=== PATIENT | male | born 1960 | race Caucasian/White ===

== ENCOUNTER 2017-05-02 10:49 | Emergency (ER) | payer BC ==
--- OUTSIDE RECORDS SUMMARY | 2017-05-02 11:01 | XMS REPORT ---
:1960 External Reference #:[id number] Author Organization [facility] Address [address] [place] [address] Phone [phone] Care Team Providers Name Role Mayte Luna Primary Care Physician Unavailable Payers Type Date Identification Numbers Payment Provider Subscriber Commercial Effective: Policy Number: Ramone Kemp 2014 [id number] [facility] Name: Ramone [address] [address] PayID: [id number] [address] [id number] Problems Date Description Provider Status Onset: Headache Active Onset: 05/12/2016 Chronic obstructive lung disease Aguila Castro MD Active Note: 03/13/16 inpt with RUL PNA. 04/26/16 CXR NAD. 05/01/16 CT chest: No PE. Scattered mild centrilobular emphysematous changes most pronounced LLL(hx of PNAs in the s). 05/12/[address] Castro. 06/13/16 stress echo normal and CXR NAD. Onset: 05/12/2016 Seasonal allergic rhinitis Aguila Castro MD Active Note: 05/01/16 eos 7%. 07/06/16 RAST +2 Morgan. 07/2016 increased nasal sinus symptoms with discontinuation of Singulair. Onset: Low back pain Active Onset: 05/12/2016 Liver cyst Aguila Castro MD Active Note: 05/01/16 CT chest: Multiple ill-defined hepatic hypodensities, largest right hepatic lobe, 2 cm. 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 Smoking 05/12/2016 Patient is a former smoker Daily Caffeine Consumes on average 3 cups of regular coffee per day Allergies, Adverse Reactions, Alerts Date Description Reaction Status Severity Comments 07/05/2016 NKDA active Medications Medication Date Status Form Strength Qnty SIG Indications Ordering Provider Arnuity 02/06/ Active Aerosol 100mcg/Act 1units 1 J45.40 Alkins, Ellipta 2017 inhalation meghan Sheehan, MD rinse mouth after use Montelukast 05/12/ Active Tablets 10mg 30tabs take one R09.82 Alkins, Sodium 2017 tablet by Aguila mouth in MD the evening Combivent / Active Aerosol 20-100mcg/ 4gm one J45.40 Alkins, Respimat 0000 Act inhalation Aguila, four times MD a day as needed Flonase 05/23/ Hx Suspension 50mcg/Act 9.900m two sprays R09.82 Viet, Allergy 2017 - l each Shikela, Relief 07/05/ nostril [employer] 2016 daily Ventolin HFA / Hx Aerosol 108(90Base inhale 2 Unknown 0000 - ) mcg/Act puff by 07/05/ inhalation 2017 route every 4 - 6 hours as needed Immunizations CPT Code Status Date Vaccine Lot # 15276 Given 02/06/2017 Influenza Vaccine, Quadrivalent, Split Virus, Im [id number] Use (Multi-Dose) 59469 Given 06/19/2016 Pneumococcal (Pneumovax 23) 74802 Given 05/12/2016 Flu Shot [id number] Vital Signs Date Vital Result Comment 04/24/2017 Height 74.2 inches 6'2.20" Weight 200.00 lb BMI (Body Mass Index) 25.5 kg/m2 BP Systolic 109 mmHg BP Diastolic 69 mmHg Heart Rate 60 /min Body Temperature 97.2 F O2 % BldC Oximetry 98 % 02/06/2017 Height 74.2 inches 6'2.20" Weight 205.00 lb BMI (Body Mass Index) 26.2 kg/m2 BP Systolic 118 mmHg BP Diastolic 67 mmHg Heart Rate 62 /min Body Temperature 97.1 F O2 % BldC Oximetry 97 % 08/04/2016 Height 74.2 inches 6'2.20" Weight 202.25 lb BMI (Body Mass Index) 25.8 kg/m2 BP Systolic 130 mmHg BP Diastolic 84 mmHg Heart Rate 57 /min Body Temperature 97.9 F O2 % BldC Oximetry 98 % 07/05/2016 Height 74.2 inches 6'2.20" Weight 200.00 lb BMI (Body Mass Index) 25.5 kg/m2 BP Systolic 109 mmHg BP Diastolic 71 mmHg Heart Rate 60 /min Body Temperature 97.2 F O2 % BldC Oximetry 98 % 05/23/2016 Height 74.2 inches 6'2.20" Weight 201.00 lb BMI (Body Mass Index) 25.7 kg/m2 BP Systolic 100 mmHg BP Diastolic 70 mmHg Heart Rate 55 /min Body Temperature 97.1 F tympanic O2 % BldC Oximetry 99 % 05/12/2016 Height 74.2 inches 6'2.20" Weight 192.50 lb BMI (Body Mass Index) 24.6 kg/m2 BP Systolic 137 mmHg left arm adult cuff BP Diastolic 84 mmHg left arm adult cuff Heart Rate 51 /min Body Temperature 97.7 F O2 % BldC Oximetry 98 % Results Test Date Test Result H/L Range Note Rast Ige 07/05/2016 Rast DONE - 1 Ige DONE kU/L - 2 Laboratory test finding 07/05/2016 Venipuncture DONE - 1 See Separate Laboratory Report 2 See Separate Laboratory Report Procedures Date CPT Code Description Status 04/24/2017 50362 Bronchodilation Responsiveness Spirometry Pre/Post Completed Bronchodil Adm 02/06/2017 53564 Bronchodilation Responsiveness Spirometry Pre/Post Completed Bronchodil Adm 07/05/2016 32323 Bronchodilation Responsiveness Spirometry Pre/Post Completed Bronchodil Adm 06/13/2016 05612 ECHO Transthor[employer] Performance Continuous Completed Electrocardio 06/13/2016 77834 Doppler Echocardiography Color Flow Velocity Mapping Completed 06/13/2016 75442 Doppler Echocardiography Complete Completed 06/13/2016 88402 Electrocardiogram Interpretation & Report Only Completed 06/13/2016 58148 Electrocardiogram Interpretation & Report Only Completed 06/13/2016 75187 Electrocardiogram Interpretation & Report Only Completed 05/12/2016 77402 Bronchodilation Responsiveness Spirometry Pre/Post Completed Bronchodil Adm 05/01/2016 53856 Electrocardiogram Interpretation & Report Only Completed 03/13/2016 83119 Electrocardiogram Interpretation & Report Only Completed Encounters Type Date Location Provider CPT E/M Dx Office Visit 04/24/2017 10:00a [facility] [address] R06.00 [place] J45.40 K76.89 Office Visit 02/06/2017 2:20p [place] [address] R06.00 [place] J44.9 J45.40 J30.2 Z28.3 Z23 Office Visit 08/04/2016 1:20p [place] [address] J44.9 [place] R09.82 Office Visit 07/05/2016 2:40p [place] [address] R06.00 [place] J44.9 Z28.3 Office Visit 05/23/2016 11:20a [place] [address] J44.9 [place] R09.82 Office Visit 05/12/2016 12:20p [place] [address] R06.00 [place] R05 J44.9 R09.82 K76.89 Z28.3 Z23 Plan of Care No Information Available
[2017-05-02 11:08] VITALS: BP 124/64
--- NOTE | 2017-05-02 13:07 | UC ---
General HPI - HPI Summary HPI Summary: Two episodes of vertigo this morning. This is new for him. he has some ringing in the ear regularly but this did not worsen. No hearing loss. NO headache or other focal neuro defecits. He had blaise hand numbness in the shower. he has had stress test that was normal and no know cardiovascular disease. Prior smoker in and prior etoh use. No illicit drugs. - History of Current Complaint Chief Complaint: UCDizziness Stated Complaint: DIZZY STOMACH HANDS/ARMS NUMB Time Seen by Provider: 05/02/17 12:28 Hx Obtained From: Patient Onset/Duration: Gradual Onset, Lasting Minutes Onset Severity: Moderate Current Severity: None Pain Intensity: 0 Associated Signs & Symptoms: Positive: Dizziness, Nausea. Negative: Agitation, Abdominal Pain, Back Pain, Confusion, Cough, Chest Pain, Decreased Responsiveness, Diarrhea, Dysuria, Diaphoresis, Edema, Fever, Headache, Melena, Palpitations, Recent Medication Changes, Syncope, SOB - chronic copd and sob from that., Trauma, Vomiting, Wheezing, Weakness - Allergy/Home Medications Allergies/Adverse Reactions: Allergies Allergy/AdvReac Type Severity Reaction Status Date / Time No Known Allergies Allergy Verified 04/29/14 12:41 Home Medications: Home Medications Albuterol/Ipratropium RESP(NF) [Combivent Respimat(NF)] 2 puff INH Q4H PRN 05/02 [History Confirmed 05/02/17] Copd Inhaler 1 inh INH DAILY 05/02/17 [History Confirmed 05/02/17] Montelukast Sodium TAB* [Singulair TAB*] 10 mg PO DAILY 05/02/17 [History Confirmed 05/02/17] PMH/Surg Hx/FS Hx/Imm Hx Previously Healthy: No - copd. Lung injury. - Surgical History Surgical History: Yes Surgery Procedure, Year, and Place: L ankle surgery. spleenectomy. R femur fracture. TRACH 1984. RIB FXS - Family History Known Family History: Positive: Other - NO known vertigo. - Social History Occupation: Unemployed Alcohol Use: Rare Substance Use Type: None Substance Use Comment - Amount & Last Used: Occassional marijuanu use for ~ 30 Years; Quit ~1999 Smoking Status (MU): Never Smoked Tobacco When Did the Patient Quit Smoking/Using Tobacco: 12 YRS AGO Review of Systems Neurological: Other - vertigo. All Other Systems Reviewed And Are Negative: Yes Physical Exam Triage Information Reviewed: Yes Appearance: Well-Appearing - walks narrow based gait without ataxia., No Pain Distress, Well-Nourished Vital Signs: Initial Vital Signs Temp 98 F 05/02/17 10:57 Pulse 58 05/02/17 10:57 Resp 16 05/02/17 10:57 BP 124/64 05/02/17 10:57 Pulse Ox 100 05/02/17 10:57 Vital Signs Reviewed: Yes Eyes: Positive: Conjunctiva Clear. Negative: Conjunctiva Inflamed ENT: Positive: Pharynx normal, Pharyngeal erythema, Other - Blaise impacted cerumen. Neck exam: Normal Neck: Positive: Supple, Nontender, No Lymphadenopathy Respiratory Exam: Other Respiratory: Positive: Chest non-tender, Lungs clear, Normal breath sounds, No respiratory distress, No accessory muscle use. Negative: Respiratory distress, Decreased breath sounds, Accessory muscle use, Crackles Cardiovascular: Positive: RRR, No Murmur, Pulses Normal, Brisk Capillary Refill Abdomen Description: Positive: No Organomegaly, Soft. Negative: Distended, Guarding Musculoskeletal: Positive: ROM Intact, No Edema Neurological: Positive: Alert, Muscle Tone Normal, Other: - CN III-XII intact. Finger to nose and heel to glass in tact. Blaise horizontal saccaddes with EOM.. Negative: Fatigued Psychological: Positive: Age Appropriate Behavior Skin: Negative: rashes Course/Dx - Course Course Of Treatment: NO signs of cva and stroke was considered. Ear wax drops, meclizine, ENT if needed. - Differential Dx - Multi-Symptom Provider Diagnoses: vertigo. Discharge - Discharge Plan Condition: Good Disposition: HOME Prescriptions: Meclizine HCl [Meclizine 25] 25 mg PO TID #30 tab Patient Education Materials: Vertigo (ED) Referrals: Mayte Waller MD [Primary Care Provider] - Additional Instructions: Ear wax drops, meclizine if needed and flu with ENT if you have several more episodes.
== END 2017-05-02 13:07 | disposition home or self-care (01) ==
LOC: UCCORT 10:49
DX: R42 Dizziness and giddiness (principal)
CPT/HCPCS: 99212; G0463

== ENCOUNTER 2018-05-16 09:15 | Emergency (ER) | payer BC ==
[2018-05-16 11:05] VITALS: BP 141/100
--- NOTE | 2018-05-16 11:07 | UC ---
Respiratory Complaint HPI - HPI Summary HPI Summary: 57 yo male presents with sinus congestion, post nasal drip, and intermittent b/ l ear pain for the last 1.5 weeks. He tells me that he has COPD and has a dry cough at baseline, but over the last 2 days feels like his cough is worse. He is most concerned because his has cancer and is currently undergoing chemotherapy and radiation and he doesn't want to get her sick. Denies fever, chills, SOB, rash, n/v. - History of Current Complaint Chief Complaint: UCGeneralIllness Stated Complaint: EAR PAIN,COUGH,CONGESTION Time Seen by Provider: 05/16/18 11:07 Hx Obtained From: Patient Onset/Duration: Gradual Onset Severity Currently: None Pain Intensity: 0 Character: Cough: Nonproductive - Allergies/Home Medications Allergies/Adverse Reactions: Allergies Allergy/AdvReac Type Severity Reaction Status Date / Time No Known Allergies Allergy Verified 05/16/18 10:58 PMH/Surg Hx/FS Hx/Imm Hx - Additional Past Medical History Additional PMH: COPD - Surgical History Surgical History: Yes Surgery Procedure, Year, and Place: L ankle surgery. spleenectomy. R femur fracture. TRACH 1984. RIB FXS - Family History Known Family History: Positive: Unknown - Social History Occupation: Employed Full-time Lives: With Family Alcohol Use: None Substance Use Type: None Substance Use Comment - Amount & Last Used: CBD oil for pain Smoking Status (MU): Former Smoker When Did the Patient Quit Smoking/Using Tobacco: 12 YRS AGO Review of Systems All Other Systems Reviewed And Are Negative: Yes Constitutional: Positive: Negative Skin: Positive: Negative Eyes: Positive: Negative ENT: Positive: Ear Ache, Nasal Discharge Respiratory: Positive: Cough Cardiovascular: Positive: Negative Gastrointestinal: Positive: Negative Neurovascular: Positive: Negative Neurological: Positive: Negative Psychological: Positive: Negative Physical Exam - Summary Physical Exam Summary: GENERAL: NAD. WDWN. No pain distress. SKIN: No rashes, sores, lesions, or open wounds. HEENT: Head: AT/NC Eyes: EOM intact. Conjunctiva clear without inflammation or discharge. Ears: Hearing grossly normal. TMs intact, no bulging, erythema, or edema. Nose: Nasal mucosa pink and moist. NTTP maxillary and frontal sinus. Throat: Posterior oropharynx without exudates, erythema, or tonsillar enlargement. Uvula midline. NECK: Supple. Nontender. No lymphadenopathy. CHEST: CTAB. No r/r/w. No accessory muscle use. Breathing comfortably and in no distress. CV: RRR. Without m/r/g. Pulses intact. Cap refill <2seconds NEURO: Alert. PSYCH: Age appropriate behavior. Triage Information Reviewed: Yes Vital Signs: Initial Vital Signs Temp 98.4 F 05/16/18 10:59 Pulse 55 05/16/18 10:59 Resp 17 05/16/18 10:59 BP 141/100 05/16/18 10:59 Pulse Ox 100 05/16/18 10:59 Vital Signs Reviewed: Yes UC Diagnostic Evaluation - Laboratory O2 Sat by Pulse Oximetry: 100 Respiratory Course/Dx - Course Course Of Treatment: Discussed normal exam with pt, but he prefers to be on anbx at this time due to 's immunocompromised condition. - Differential Dx/Diagnosis Provider Diagnosis: Rhinosinusitis Discharge - Sign-Out/Discharge Documenting (check all that apply): Patient Departure All imaging exams completed and their final reports reviewed: No Studies - Discharge Plan Condition: Stable Disposition: HOME Prescriptions: DOXYcycline CAP(*) [DOXYcycline 100MG CAP(*)] 100 mg PO BID #14 cap Patient Education Materials: Sinusitis (ED), Acute Bronchitis (ED) Referrals: Mayte Waller MD [Primary Care Provider] - Additional Instructions: If you develop a fever, shortness of breath, chest pain, new or worsening symptoms - please call your PCP or go to the ED. Your blood pressure was high at todays visit. Please see your primary provider within 4 weeks for recheck and re-evaluation. - Billing Disposition and Condition Condition: STABLE Disposition: Home
== END 2018-05-16 11:22 | disposition home or self-care (01) ==
LOC: UCCORT 09:15
DX: J32.9 Chronic sinusitis, unspecified (principal); J44.9 Chronic obstructive pulmonary disease, unspecified; Z87.891 Personal history of nicotine dependence
CPT/HCPCS: 99212; G0463